=== PATIENT | male | born 1980 | race Caucasian/White ===

== ENCOUNTER 2017-07-22 06:34 | Day surgery (SDC) | payer OTHER ==
[2017-07-22] MEDS ORDERED: Sodium Chloride 0.9% 10 ML Syringe FLUSH PRN (06:45)
[2017-07-22] MEDS ORDERED: Lactated Ringers 1,000 ML IV SCH (06:45)
[2017-07-22] MEDS ORDERED: Ketorolac 30 MG/ML SDV IVPUSH ONE (08:00)
[2017-07-22] MEDS ORDERED: Midazolam 1 MG/ML 2 ML SDV IV ONE (08:00)
[2017-07-22] MEDS ORDERED: Ondansetron 4 MG/2 ML SDV IVPUSH ONE (08:00)
[2017-07-22] MEDS ORDERED: Propofol 200 MG/20 ML SDV IV ONE (08:00)
[2017-07-22] MEDS ORDERED: fentaNYL 100 MCG/2 ML SDV IV ONE (08:00)
[2017-07-22] MEDS ORDERED: Lidocaine 1% with EPINEPHrine 1:100,000 20 ML MDV INJECT ONE (08:09)
[2017-07-22] MEDS ORDERED: Bupivacaine 0.5% 30 ML SDV INJECT ONE (08:09)
--- NOTE | 2017-07-22 08:28 | PCM.OPNOTE ---
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
--- NOTE | 2017-07-22 09:03 | OR ---
DATE OF OPERATION: 07/22/2017 SURGEON: Junaid Loo MD PROCEDURE PERFORMED: Excisional biopsy of scalp lipoma. PREOPERATIVE DIAGNOSIS: Lipoma of the scalp. POSTOPERATIVE DIAGNOSIS: Lipoma of the scalp. INDICATIONS FOR PROCEDURE: This is a 37-year-old white male who has a 4 cm lipoma on the scalp just superior to the hairline. Given the size, he was offered and accepted excisional biopsy. DESCRIPTION OF PROCEDURE: After an excellent IV sedation was administered, the area was infiltrated with 6 mL of 1:1 mixture of 1% lidocaine with epinephrine 0.5% bupivacaine. A transverse incision was then made and bleeding was controlled with electrocautery. The skin flaps were raised superiorly and inferiorly, and the capsule surrounding the lipoma was then entered and the lipoma was then grasped with an Allis and excised from the scalp. After assuring hemostasis, the wound was closed with dasha. Dressing was applied. Needle, sponge, and instrument counts were reported as correct. The patient was taken to recovery room in good condition having tolerated the procedure well. /[id number] /MODL
== END 2017-07-22 09:24 | disposition home or self-care (01) ==
LOC: FB.SDS 06:34
PROVIDERS: ATTEND Surgery
DX: D17.0 Benign lipomatous neoplasm of skin and subcutaneous tissue of head, face and neck (principal); Z79.899 Other long term (current) drug therapy
CPT/HCPCS: 21012; 88304; J1885; J2250; J2405; J2704; J3010; J7120